=== PATIENT | female | born 1995 | race African-American/Black ===

== ENCOUNTER 2017-03-06 08:12 | Emergency (ER) | payer MEDICAID, OTHER ==
[~2017-03-06] VITALS: Ht 165.1 cm; Wt 44.5 kg
[2017-03-06 08:15] VITALS: Ht 165.1 cm; Wt 44.5 kg
[2017-03-06 09:03] LABS: ADD SCAN DIFF NO
[2017-03-06 09:06] LABS: ABNORMAL IP MESSAGE 1; BASOPHILS % 0.5 % (0.0-2.0); EOSINOPHILS % 0.5 % (0.0-7.0); HEMATOCRIT 34.6 % (37.0-47.0); HEMOGLOBIN 12.3 g/dl (12.0-16.0); LYMPHOCYTES # 0.5 10^3/ul (0.8-2.9); LYMPHOCYTES % 14.1 % (15.0-51.0); MEAN CORPUSCULAR HEMOGLOBIN 36.9 pg (29.0-33.0); MEAN CORPUSCULAR HGB CONC 35.5 g/dl (32.0-37.0); MEAN CORPUSCULAR VOLUME 103.9 fl (82.0-101.0); MEAN PLATELET VOLUME 8.6 fl (7.4-10.4); MONOCYTE # 0.4 10^3/ul (0.3-0.9); MONOCYTES % 9.4 % (0.0-11.0); NEUTROPHIL # 2.9 10^3/ul (1.6-7.5); NEUTROPHILS % 75.2 % (39.0-77.0); PLATELET COUNT 168 10^3/UL (140-415); RED BLOOD COUNT 3.33 10^6/ul (4.20-5.40); RED CELL DISTRIBUTION WIDTH 13.2 % (11.5-14.5); WHITE BLOOD COUNT 3.8 10^3/ul (4.8-10.8)
--- NOTE | 2017-03-06 09:21 | RADRPT ---
PROCEDURE: US OB. CLINICAL INDICATION: Vaginal bleeding TECHNIQUE: Transabdominal and transvaginal views of the pelvis are available for review. COMPARISON: No prior studies are available for comparison. FINDINGS: There is a single intrauterine gestation with the crown-rump length measuring 4.7 cm, corresponding to a gestational age of 11 weeks and 3 days. The heart rate is noted at 182 bpm. There is a possible small area of subchorionic hemorrhage noted. The right ovary measures 3.3 x 1.8 x 1.8 cm. The left ovary was not visualized. There is no free fluid. RPTAT: AA IMPRESSION: Single live intrauterine with an estimated gestational age of 11 weeks and 3 days, based o n ultrasound measurements. Possible small area of subchorionic hemorrhage. Follow-up is needed. GURDEEP based on ultrasound measurements is 09/25/2017. .Yoni Camacho MD, MD Date Time Electronically viewed and signed by .Yoni Camacho MD, on 03/06/2017 09:20 .S/
[2017-03-06 09:25] LABS: ALBUMIN 4.8 g/dl (3.3-4.9); CALCIUM 9.1 mg/dl (8.4-10.2); CREATININE 0.67 mg/dl (0.44-1.00); POTASSIUM 3.8 mmol/L (3.5-5.1); TOTAL PROTEIN 7.2 g/dl (6.1-8.1)
[2017-03-06 09:51] LABS: UR RBC 0 /HPF (0-5); UR SQUAMOUS EPITHELIAL CELL FEW /HPF (FEW)
[2017-03-06 11:03] LABS: ADD UMIC NO; UR ASCORBIC ACID NEGATIVE (NEGATIVE); UR BILIRUBIN (Dip) NEGATIVE (NEGATIVE); UR BLOOD (Dip) NEGATIVE (NEGATIVE); UR CLARITY SLIGHTLY CLOUDY (CLEAR); UR COLOR YELLOW (YELLOW); UR GLUCOSE (Dip) NEGATIVE (NEGATIVE); UR KETONES (Dip) NEGATIVE (NEGATIVE); UR LEUKOCYTE ESTERASE (Dip) NEGATIVE Leu/ul (NEGATIVE); UR NITRITE (Dip) NEGATIVE (NEGATIVE); UR SPECIFIC GRAVITY (Dip) 1.021 (1.003-1.030); UR TOTAL PROTEIN (Dip) NEGATIVE (NEGATIVE); UR UROBILINOGEN (Dip) NEGATIVE (NEGATIVE)
[2017-03-06] MEDS ORDERED: METO10TA92 PO (11:27)
--- NOTE | 2017-03-06 14:43 | ERD ---
ER Documentation Chief Complaint Date/Time DATE: 03/06/17 TIME: 14:43 Chief Complaint Vaginal bleeding/spotting with 5/10 pelvic pain x last night 11 weeks HPI 21-year-old female patient who is a A2 presents to the ED complaining of vaginal spotting that occurred last night. Reports that she is about 11 weeks . States that she has some lower pelvic pain on the right side that she rates a 5 out of 10. Describes as cramping. Patient reports that she had daily nausea and one episode of nonbloody nonbloody vomiting per day. States that she has had to change 2 pads. Denies any chest pain, shortness of breath, abdominal pain, diarrhea, constipation. Patient's last menses was on December 16, 2016. ROS All systems reviewed and are negative except as per history of present illness. Medications Home Meds Active Scripts Metoclopramide* (Reglan*) 10 Mg Tablet, 10 MG PO Q6 Y for NAUSEA AND/OR VOMITING , #20 TAB Prov:SAMUEL MCCULLOUGH PA-C 03/06/17 Allergies Allergies: Coded Allergies: No Known Allergy (Unverified , 03/06/17) PMhx/Soc Medical and Surgical Hx: pt denies Medical Hx, pt denies Surgical Hx History of Surgery: No Anesthesia Reaction: No Hx Neurological Disorder: No Hx Respiratory Disorders: No Hx Cardiac Disorders: No Hx Psychiatric Problems: No Hx Alcohol Use: No Hx Substance Use: No Hx Tobacco Use: No Smoking Status: Never smoker Physical Exam Vitals Vital Signs Date Time Temp Pulse Resp B/P Pulse Ox O2 Delivery O2 Flow Rate FiO2 03/06/17 08:15 98.4 89 16 113/65 100 Physical Exam Const: [id number]-bhauiznfo, well-nourished. In no acute distress. Head: Atraumatic, normocephalic Eyes: Normal Conjunctiva without injection. No purulent discharge. ENT: Normal external ear, nose. Moist oropharynx without tonsillar exudates. Non -erythematous pharynx. Uvula midline. No drooling. No trismus. Neck: No cervical midline tenderness. Full range of motion. No meningismus. No cervical lymphadenopathy. No JVD. Resp: Clear to auscultation bilaterally. No wheezing, rhonchi, rales, or crackles. No accessory muscle use. No retractions. Cardio: Regular rate and rhythm. No murmurs, rubs or gallops. Abd: Soft, nontender, non distended. Normal bowel sounds. No palpable masses. No rebound tenderness. No guarding. Negative McBurney's point. Negative psoas sign. Negative obturator sign. Skin: No petechiae or rashes Back: No midline tenderness. No CVA tenderness. Ext: No cyanosis, or edema. Neur: Awake and alert. Normal gait. Normal coordination. Psych: Normal Mood and Affect Result Diagram: 03/06/17 0856 03/06/17 0856 Results 24 hrs Laboratory Tests Test 03/06/17 08:56 White Blood Count 3.810^3/ul Red Blood Count 3.3310^6/ul Hemoglobin 12.3g/dl Hematocrit 34.6% Mean Corpuscular Volume 103.9fl Mean Corpuscular Hemoglobin 36.9pg Mean Corpuscular Hemoglobin Concent 35.5g/dl Red Cell Distribution Width 13.2% Platelet Count 26812^3/UL Mean Platelet Volume 8.6fl Neutrophils % 75.2% Lymphocytes % 14.1% Monocytes % 9.4% Eosinophils % 0.5% Basophils % 0.5% Nucleated Red Blood Cells % 0.0/100WBC Neutrophils # 2.910^3/ul Lymphocytes # 0.510^3/ul Monocytes # 0.410^3/ul Eosinophils # 0.010^3/ul Basophils # 0.010^3/ul Nucleated Red Blood Cells # 0.010^3/ul Urine Color YELLOW Urine Clarity SLIGHTLY CLOUDY Urine pH 6.0 Urine Specific [place] 1.021 Urine Ketones NEGATIVEmg/dL Urine Nitrite NEGATIVEmg/dL Urine Bilirubin NEGATIVEmg/dL Urine Urobilinogen NEGATIVEmg/dL Urine Leukocyte Esterase NEGATIVELeu/ul Urine Microscopic RBC 0/HPF Urine Microscopic WBC 0/HPF Urine Squamous Epithelial Cells FEW/HPF Urine Hemoglobin NEGATIVEmg/dL Urine Glucose NEGATIVEmg/dL Urine Total Protein NEGATIVEmg/dl Sodium Level 137mmol/L Potassium Level 3.8mmol/L Chloride Level 103mmol/L Carbon Dioxide Level 24mmol/L Anion Gap 14 Blood Urea Nitrogen 7mg/dl Creatinine 0.67mg/dl Glucose Level 92mg/dl Calcium Level 9.1mg/dl Total Bilirubin 0.0mg/dl Direct Bilirubin 0.00mg/dl Indirect Bilirubin 0.0mg/dl Aspartate Amino Transf (AST/SGOT) 25IU/L Alanine Aminotransferase (ALT/SGPT) 26IU/L Alkaline Phosphatase 37IU/L Total Protein 7.2g/dl Albumin 4.8g/dl Globulin 2.40g/dl Albumin/Globulin Ratio 2.00 Lipase 93U/L Beta HCG, Quantitative 045121.0mIU/ml Procedures/MDM 21-year-old female patient who is a A2 presents the ED complaining of vaginal spotting and abdominal cramping. Patient is afebrile and nontoxic- appearing. Patient has normal vital signs. An ultrasound, beta-hCG, CBC, type and RH, UA was ordered to evaluate patient. CBC: No evidence of severe infection or anemia Normal lipase CMP: No e/o severe acidosis, alkalosis, renal failure, diabetic ketoacidosis, liver disease Urine: No elevation in nitrites, leukocyte esterase, hematuria. No evidence of UTI Rh: O positive No indication for Rhogam at this time. beta Hc PROCEDURE: US OB. CLINICAL INDICATION: Vaginal bleeding TECHNIQUE: Transabdominal and transvaginal views of the pelvis are available for review. COMPARISON: No prior studies are available for comparison. FINDINGS: There is a single intrauterine gestation with the crown-rump length measuring 4.7 cm, corresponding to a gestational age of 11 weeks and 3 days. The heart rate is noted at 182 bpm. There is a possible small area of subchorionic hemorrhage noted. The right ovary measures 3.3 x 1.8 x 1.8 cm. The left ovary was not visualized. There is no free fluid. RPTAT: AA IMPRESSION: Single live intrauterine with an estimated gestational age of 11 weeks and 3 days, based on ultrasound measurements. Possible small area of subchorionic hemorrhage. Follow-up is needed. GURDEEP based on ultrasound measurements is 09/25/2017. Patient has a single live intrauterine with an estimated gestational age of 11 weeks and 3 days. Patient denied wanting any IV fluids. Low suspicion for dehydration. Patient's bleeding symptoms have stabilized while in the department. Low suspicion for symptomatic anemia, ectopic , sepsis, PID, appendicitis, ovarian torsion, tubo-ovarian abscess, surgical abdomen, or other emergent conditions. Patient was educated that there is a risk for threatened . Discharge medications: Reglan Patient to follow up with [facility] in 2 days for further evaluation and treatment. Patient is to return sooner to the ED for any worsening symptoms. Patient's questions were answered. Patient understood and agreed with discharge plan. Departure Diagnosis: Primary Impression: Vaginal bleeding in patient at less than 20 weeks ges... Additional Impression: Nausea and vomiting during Condition: Stable Patient Instructions: Bleeding During Early , Hyperemesis Gravidarum Referrals: [facility] YOU HAVE RECEIVED A MEDICAL SCREENING EXAM AND THE RESULTS INDICATE THAT YOU DO NOT HAVE A CONDITION THAT REQUIRES URGENT TREATMENT IN THE EMERGENCY DEPARTMENT. FURTHER EVALUATION AND TREATMENT OF YOUR CONDITION CAN WAIT UNTIL YOU ARE SEEN IN YOUR DOCTORS OFFICE WITHIN THE NEXT 1-2 DAYS. IT IS YOUR RESPONSIBILITY TO MAKE AN APPOINTMENT FOR FOLOW-UP CARE. IF YOU HAVE A PRIMARY DOCTOR --you should call your primary doctor and schedule an appointment IF YOU DO NOT HAVE A PRIMARY DOCTOR YOU CAN CALL OUR PHYSICIAN REFERRAL HOTLINE AT IF YOU CAN NOT AFFORD TO SEE A PHYSICIAN YOU CAN CHOSE FROM THE FOLLOWING [facility] [address] [facility] [employer] [facility]. [facility] [address] [facility]. [facility] [address] [facility] [address] [facility] [address] [facility]. [facility]. [address] [facility]. [facility] YOU HAVE RECEIVED A MEDICAL SCREENING EXAM AND THE RESULTS INDICATE THAT YOU DO NOT HAVE A CONDITION THAT REQUIRES URGENT TREATMENT IN THE EMERGENCY DEPARTMENT. FURTHER EVALUATION AND TREATMENT OF YOUR CONDITION CAN WAIT UNTIL YOU ARE SEEN IN YOUR DOCTORS OFFICE WITHIN THE NEXT 1-2 DAYS. IT IS YOUR RESPONSIBILITY TO MAKE AN APPOINTMENT FOR FOLOW-UP CARE. IF YOU HAVE A PRIMARY DOCTOR --you should call your primary doctor and schedule and appointment IF YOU DO NOT HAVE A PRIMARY DOCTOR YOU CAN CALL OUR PHYSICIAN REFERRAL HOTLINE AT . IF YOU CAN NOT AFFORD TO SEE A PHYSICIAN YOU CAN CHOSE FROM THE FOLLOWING [facility]: [facility] [address] [place] [address] [facility] [address] [place] [address] [facility] [address] [place] [address] [facility] [place] [address] [facility] [address] [place] [address] OFFICE FAX , [facility] [address] [place] [address] [address] [facility] [address] [place] [address] [address] DOYLE, [facility] [address] [facility], [address], [facility] [address] [address] [facility] [facility] [address] [place] [address] [facility] [address] [place] [address] [address] [facility] [address] - [address] DUTTA RICHY [address] [facility]. [address], [facility] [address] [address] MILLAN AFSHAN [address] [facility], [facility] [address] [address] [facility] [address] [place], [place] [id number] [facility] Hours: 8:00 am - 5:00 pm Additional Instructions: Call your primary care doctor TOMORROW for an appointment during the next 2 days for further care and treatment. See the doctor sooner or return here if your condition worsens before your appointment time. SAMUEL MCCULLOUGH PA-C Mar 06, 2017 14:43
== END 2017-03-06 11:45 | disposition home or self-care (01) ==
LOC: FTE 08:12
DX: O20.9 Hemorrhage in early pregnancy, unspecified (principal); O21.9 Vomiting of pregnancy, unspecified; R10.2 Pelvic and perineal pain; Z3A.11 11 weeks gestation of pregnancy
CPT/HCPCS: 36415; 76801; 80053; 81001; 83690; 84702; 85025; 86900; 86901; Z7502; 81003

== ENCOUNTER 2017-03-15 13:16 | Emergency (ER) | payer MEDICAID, OTHER ==
[~2017-03-15] VITALS: Ht 165.1 cm; Wt 44.0 kg
[~2017-03-15 13:16] MED LIST: METO10TA92 PO
[2017-03-15 13:28] VITALS: Ht 165.1 cm; Wt 44.0 kg
[2017-03-15] MEDS ORDERED: BEN25 PO (13:50)
[2017-03-15] MEDS ORDERED: PRED20TA PO (13:50)
--- NOTE | 2017-03-15 13:59 | ERD ---
ER Documentation Chief Complaint Date/Time DATE: 03/15/17 TIME: 13:53 Chief Complaint RASH HPI This 21-year-old female complains of an itchy rash on her upper extremities and lower extremities for the last day. She describes the rash as lumpy. She denies fevers, shortness breath, wheezing. She denies any new foods or new medications or new exposures. ROS All systems reviewed and are negative except as per history of present illness. Medications Home Meds Active Scripts Prednisone* (Prednisone*) 20 Mg Tab, 40 MG PO DAILY for 4 Days, TAB Start March 16, 2017 Prov:NIKITA MURGUIA MD 03/15/17 Diphenhydramine Hcl* (Benadryl*) 25 Mg Cap, 25 MG PO Q6, #15 CAP Prov:NIKITA MURGUIA MD 03/15/17 Metoclopramide* (Reglan*) 10 Mg Tablet, 10 MG PO Q6 Y for NAUSEA AND/OR VOMITING , #20 TAB Prov:SAMUEL MCCULLOUGH PA-C 03/06/17 Allergies Allergies: Coded Allergies: No Known Allergy (Unverified , 03/06/17) PMhx/Soc History of Surgery: No Anesthesia Reaction: No Hx Neurological Disorder: No Hx Respiratory Disorders: No Hx Cardiac Disorders: No Hx Psychiatric Problems: No Hx Alcohol Use: No Hx Substance Use: No Hx Tobacco Use: No Physical Exam Vitals Vital Signs Date Time Temp Pulse Resp B/P Pulse Ox O2 Delivery O2 Flow Rate FiO2 03/15/17 13:28 99.1 101 18 119/67 100 Physical Exam Const: [], [id number]. Head: Atraumatic Eyes: Normal Conjunctiva. Nonicteric ENT: Normal External Ears, Nose and Mouth. Neck: Full range of motion..~ No meningismus. Resp: Clear to auscultation bilaterally Cardio: Regular rate and rhythm, no murmurs Abd: Soft, non tender, non distended. Normal bowel sounds Skin: No petechiae or purpura. There are scattered wheals on the upper extremities and a few on the forearms. There is no abdominal rashes. Back: No midline or flank tenderness Ext: No cyanosis, or edema Neur: Awake and alert Psych: Normal Mood and Affect Results 24 hrs Current Medications Medications (Trade) Dose Ordered Sig/Daryl Route PRN Reason Start Time Stop Time Status Last Admin Dose Admin Prednisone (Prednisone) 40 mg ONCE ONCE PO 03/15/17 14:00 03/15/17 14:01 03/15/17 13:50 Diphenhydramine HCl (Benadryl) 25 mg ONCE ONCE PO 03/15/17 14:00 03/15/17 14:01 03/15/17 13:50 Procedures/MDM Patient presents with an urticarial rash or hives. There is no evidence of anaphylaxis or cellulitis. Some signs or symptoms to suggest a calculus cholecystitis or complications of or hepatic etiology . Departure Diagnosis: Primary Impression: Hives Additional Impression: Rash Condition: Stable Patient Instructions: Hives Additional Instructions: Observe environment for potential allergies. Recheck for fevers, vomiting, abdominal pain, shortness of breath, bleeding, new worsening symptoms. NIKITA MURGUIA MD Mar 15, 2017 13:58
[2017-03-15] MEDS ORDERED: DIPHENHYDRAMINE 25 MG CAP PO ONE (14:00)
[2017-03-15] MEDS ORDERED: predniSONE 20 MG TAB PO ONE (14:00)
== END 2017-03-15 13:55 | disposition home or self-care (01) ==
LOC: FTE 13:16
DX: L50.9 Urticaria, unspecified (principal)
CPT/HCPCS: J7512; Z7502; Z7610; 99283